=== PATIENT | female | born 1955 | race African-American/Black ===

== ENCOUNTER 2025-03-29 21:59 | Emergency (ER) | payer MEDICARE, OTHER | END 2025-03-29 23:16 | disposition home or self-care (01) | LOC: MADERS 21:59 | DX: S16.1XXA Strain of muscle, fascia and tendon at neck level, initial encounter (principal); M54.50 Low back pain, unspecified; E11.9 Type 2 diabetes mellitus without complications; I10 Essential (primary) hypertension; V89.2XXA Person injured in unspecified motor-vehicle accident, traffic, initial encounter | CPT/HCPCS: 70450; 72125; 72131 ==